=== PATIENT | female | born 1990 ===

== ENCOUNTER 2016-05-21 19:05 | Emergency (ER) | payer OTHER ==
[2016-05-21 19:52] VITALS: BMI 32.5
--- NOTE | 2016-05-21 21:14 | ED PDOC ---
Arrival/HPI - General Chief Complaint: Fever Time Seen by Provider: 05/21/16 19:37 Historian: Patient - History of Present Illness Narrative History of Present Illness (Text): 05/21/16 20:58 26yr old female presents stable three day history of fever and body aches. No sick contacts at home. Patient denies cough. Denies sore throat. Denies abdominal pain. No nausea or vomiting. Denies chest pain or shortness of breath. Patient states since Saturday night she has had high fevers. Patient states she is taking Tylenol for fever but is just feeling achy all over. Patient states she did not get her flu shot this year. No other complaints Past Medical History - Provider Review Nursing Documentation Reviewed: Yes - Travel History Have you recently traveled outside [place] w/in the past 3 mons?: No - Infectious Disease Hx of Infectious Diseases: None - Tetanus Immunization Tetanus Immunization: Unknown - Cardiac Hx Cardiac Disorders: No - Pulmonary Hx Respiratory Disorders: No - Neurological Hx Neurological Disorder: No - HEENT Hx HEENT Disorder: No - Renal Hx Renal Disorder: No - Endocrine/Metabolic Hx Endocrine Disorders: Yes Hx Diabetes Mellitus Type 2: Yes (iddm) - Hematological/Oncological Hx Blood Disorders: No - Integumentary Hx Dermatological Disorder: Yes - Musculoskeletal/Rheumatological Hx Musculoskeletal Disorders: Yes Hx Fractures: Yes (right clavicle) - Gastrointestinal Hx Gastrointestinal Disorders: No - Genitourinary/Gynecological Hx Genitourinary Disorders: No - Psychiatric Hx Psychophysiologic Disorder: No Hx Substance Use: No - Past Surgical History Past Surgical History: No Previous - Anesthesia Hx Anesthesia: No - Suicidal Assessment Feels Threatened In Home Enviroment: No Family/Social History - Physician Review Nursing Documentation Reviewed: Yes Family/Social History: Unknown Family HX Smoking Status: Never Smoked Hx Alcohol Use: No Hx Substance Use: No Hx Substance Use Treatment: No Allergies/Home Meds Allergies/Adverse Reactions: Allergies No Known Allergies Allergy (Verified 08/04/15 21:00) Home Medications: Home Meds Medication Instructions Recorded Confirmed Insulin Glargine,Hum.rec.anlog 50 unit SC DAILY 08/04/15 08/04/15 [Lantus] Metformin HCl [Glucophage] 1,000 mg PO DAILY 08/04/15 08/04/15 Review of Systems - Review of Systems Constitutional: Fevers, Other (Body aches). absent: Fatigue ENT: absent: Sore Throat, Sinus Congestion Respiratory: absent: SOB, Cough Cardiovascular: absent: Chest Pain, Palpitations Gastrointestinal: absent: Abdominal Pain, Nausea, Vomiting Genitourinary Female: absent: Dysuria, Frequency, Hematuria Musculoskeletal: absent: Arthralgias, Back Pain, Neck Pain Skin: absent: Rash, Pruritis Psychiatric: absent: Anxiety, Depression Physical Exam Vital Signs Reviewed: Yes Vital Signs Temp Pulse Resp BP Pulse Ox 05/21/16 22:27 99.4 F 100 H 16 111/73 98 05/21/16 19:55 100.5 F H 114 H 18 111/75 97 Temperature: Febrile Blood Pressure: Normal Pulse: Tachycardic Respiratory Rate: Normal Appearance: Positive for: Well-Appearing, Non-Toxic, Comfortable Pain Distress: None Mental Status: Positive for: Alert and Oriented X 3 - Systems Exam Head: Present: Atraumatic Extroacular Muscles: Present: EOMI Conjunctiva: Present: Normal Ears: Present: Normal, NORMAL TM Mouth: Present: Moist Mucous Membranes Pharnyx: Present: Normal. No: ERYTHEMA, EXUDATE, TONSILS ENLARGED, Peritonsilar Swelling, Uvular Deviation, Muffled/Hoarse Voice Nose (External): Present: Atraumatic Nose (Internal): Present: Normal Inspection Neck: Present: Normal Range of Motion, Trachea Midline. No: Meningeal Signs Respiratory/Chest: Present: Clear to Auscultation Cardiovascular: Present: Regular Rate and Rhythm Abdomen: No: Tenderness Neurological: Present: GCS=15 Skin: Present: Warm, Dry, Normal Color. No: Rashes Psychiatric: Present: Alert, Oriented x 3 Medical Decision Making ED Course and Treatment: 05/21/16 21:17 Patient is nontoxic well-appearing in no distress. low grade fever, tachycardia tylenol PO UA: + leukocytes, 1-3 wbcs rapid flu; negative pt with flu like symptoms; will start patient on tamiflu, and treat with amoxicillin. pt reassessment; pt feeling better after medications; vitals stable. I advised follow up with primary care physician within the next 2 days. I advised increase fluids and return if symptoms worsen persist or if new symptoms develop. Patient verbalizes understanding of discharge instructions and need for immediate followup. all aspects of this case were discussed the attending of record. IMPRESSION; fever, influenza Motrin one tablet every 6 hours as needed for pain Amoxicillin 1 tablet 3 times daily 10 days Tamiflu twice daily 5 days Increase fluids Followup with primary care physician the next 2 days Return if symptoms worsen persist or if new symptoms develop - Lab Interpretations Lab Results: Lab Results 05/21/16 21:30: Urine Color Straw, Urine Appearance Sl cloudy, Urine pH 6.5, Ur Specific [place] 1.020, Urine Protein 30 H, Urine Glucose (UA) Negative, Urine Ketones Negative, Urine Blood Negative, Urine Nitrate Negative, Urine Bilirubin Small H, Urine Urobilinogen 1.0 H, Ur Leukocyte Esterase Trace H, Urine RBC 0 - 2, Urine WBC 1 - 3, Ur Epithelial Cells 3 - 4, Urine Bacteria Mod 05/21/16 20:40: Influenza Typ A,B (EIA) Negative for flu a/b - Medication Orders Current Medication Orders: Discontinued Medications Acetaminophen (Tylenol 325mg Tab) 975 mg PO STAT STA Stop: 05/21/16 20:00 Last Admin: 05/21/16 20:40 Dose: 975 MG MAR Pain/Vitals Document 05/21/16 20:40 YP (Rec: 05/21/16 20:41 YP [id number]) Pain Reassessment Is This A Pain ReAssessment? Yes Sleep Is patient sleeping during reassessment? No Presence of Pain Presence of Pain Yes Amoxicillin (Amoxil 500 Mg Cap) 500 mg PO STAT STA PRN Reason: Protocol Stop: 05/21/16 22:23 Ibuprofen (Motrin Tab) 600 mg PO STAT STA Stop: 05/21/16 22:23 Oseltamivir Phosphate (Tamiflu Cap) 75 mg PO STAT STA PRN Reason: Protocol Stop: 05/21/16 22:23 Disposition/Present on Arrival - Present on Arrival Any Indicators Present on Arrival: No History of DVT/PE: No History of Uncontrolled Diabetes: No Urinary Catheter: No History of Decub. Ulcer: No History Surgical Site Infection Following: None - Disposition Have Diagnosis and Disposition been Completed?: Yes Diagnosis: Fever Disposition: HOME/ ROUTINE Disposition Time: 22:39 Patient Plan: Discharge Condition: GOOD Discharge Instructions (ExitCare): Fever in Adults (ED), Influenza (ED) Additional Instructions: Motrin one tablet every 6 hours as needed for pain Amoxicillin 1 tablet 3 times daily 10 days Tamiflu twice daily 5 days Increase fluids Followup with primary care physician the next 2 days Return if symptoms worsen persist or if new symptoms develop Prescriptions: Amoxicillin 500 mg PO TID #30 tab Ibuprofen [Motrin] 600 mg PO Q6H PRN #20 tab PRN Reason: pain/fever reduction Oseltamivir [Tamiflu] 75 mg PO BID #10 cap Forms: WORK NOTE
[2016-05-21 21:36] LABS: PH,URINE 6.5 (4.7-8.0); URINE BILIRUBIN SMALL (NEGATIVE); URINE BLOOD NEGATIVE (NEGATIVE); URINE GLUCOSE (UA) NEGATIVE (NEGATIVE); URINE KETONE NEGATIVE (NEGATIVE); URINE LEUKOCYTE ESTERASE TRACE Leu/uL (NEGATIVE); URINE PROTEIN 30 mg/dL (<30 mg/dL)
[2016-05-21 21:40] LABS: URINE APPEARANCE SL CLOUDY (CLEAR); URINE COLOR STRAW (YELLOW)
[2016-05-21 22:08] LABS: URINE RBC 0 - 2 /hpf (0-2)
[2016-05-21 22:11] LABS: URINE BACTERIA MOD (NEG)
[2016-05-21 22:27] VITALS: RESP 16; TEMP 99.4
[2016-05-21 23:23] VITALS: BP 128/67; PULSE 98; O2SAT 99
== END 2016-05-21 23:22 | disposition home or self-care (01) ==
LOC: ED 19:05
DX: R50.9 Fever, unspecified (principal)